=== PATIENT | female | born 2000 | race Caucasian/White ===

== ENCOUNTER → 2022-02-11 | Outpatient (CLI) | payer OTHER, BC | END | disposition home or self-care (01) | LOC: CT 14:19 | PROVIDERS: ATTEND Specialist | DX: J32.9 Chronic sinusitis, unspecified (principal) ==

== ENCOUNTER 2022-02-23 16:49 | Emergency (ER) | payer OTHER, BC ==
[~2022-02-23 16:49] MED LIST: FLONASE ALLERG9.9 ML NAS; ORTHO-NOVUM 7-1 EACH PO; ZYRTEC ALLERGY10 MG PO
[2022-02-23 18:05] LABS: SGPT/ALT 18 U/L (12-78)
[2022-02-25 05:06] LABS: HEPATITIS B SURFACE AB Reactive (.); HEPATITIS B SURFACE AG Negative (Negative)
== END 2022-02-23 17:30 | disposition home or self-care (01) ==
LOC: ED 16:49
PROVIDERS: Nurse Practitioner Family
DX: S61.231A Puncture wound without foreign body of left index finger without damage to nail, initial encounter (principal); Z79.899 Other long term (current) drug therapy; Z91.013 Allergy to seafood; Z90.89 Acquired absence of other organs; W27.3XXA Contact with needle (sewing), initial encounter; Y93.89 Activity, other specified; Y92.89 Other specified places as the place of occurrence of the external cause; Y99.8 Other external cause status

== ENCOUNTER → 2022-02-25 | Day surgery (SDC) | payer OTHER ==
[~2022-02-25] VITALS: Ht 157.4 cm; Wt 90.7 kg
[2022-02-25 09:00] VITALS: BP 137/66
[2022-02-25 09:28] VITALS: BP 122/72
[2022-02-25 10:28] VITALS: BP 122/72
[2022-02-25 10:43] VITALS: BP 134/79
[2022-02-25 10:58] VITALS: BP 115/70
== END | disposition home or self-care (01) ==
LOC: SDC 02-14 08:00
PROVIDERS: ATTEND Specialist
DX: H65.493 Other chronic nonsuppurative otitis media, bilateral (principal); J30.9 Allergic rhinitis, unspecified; J32.9 Chronic sinusitis, unspecified; Z79.899 Other long term (current) drug therapy